=== PATIENT | male | born 1940 | race Caucasian/White ===

== ENCOUNTER → 2024-11-30 12:31 | Outpatient (REF) | payer MEDICARE, OTHER, SELFPAY | LOC: RAD 12:31 | PROVIDERS: ATTENDING PHYSICIAN Family Medicine | DX: M25.511 Pain in right shoulder (principal) | CPT/HCPCS: 73030 ==

== ENCOUNTER 2025-07-08 10:44 | Emergency (ER) | payer MEDICARE, OTHER, SELFPAY ==
[2025-07-08 10:55] VITALS: BP 142/54
[2025-07-08 11:18] LABS: Hematocrit 45.1 % (39.0-52.0); Hemoglobin 15.2 g/dL (13.0-18.0); Mean Corp Hgb Conc. 33.7 g/dL (33.0-37.0); Mean Corpuscular Volume 87.2 fL (80.0-94.0); Nucleated Red Blood Cells % 0 % (-); Platelet Count 197 10^3/uL (130-400); Red Cell Dist. Width 13.0 % (11.5-14.5)
[2025-07-08 11:27] LABS: ALT (SGPT) 22 U/L (0-50); AST (SGOT) 30 U/L (17-59); Albumin 4.1 g/dl (3.5-5.0); Alkaline Phosphatase 67 U/L (38-126); Blood Urea Nitrogen 20 mg/dl (9-20); Calcium 9.0 mg/dl (8.4-10.2); Carbon Dioxide 26 mmol/L (22-30); Chloride 104 mmol/L (98-107); Glucose 106 mg/dl (70-99); Potassium 4.1 mmol/L (3.5-5.1); Sodium 134 mmol/L (135-145); Total Protein 7.2 g/dl (6.3-8.2); eGFR 59.26
[2025-07-08 11:38] LABS: Troponin I 0.016 ng/ml
--- NOTE | 2025-07-08 11:51 | ED.GENMED ---
History of Present Illness
General
Chief Complaint: Chest Pain
Source: patient
Exam Limitations: none
Time Seen by Provider: 07/08/25 11:43
Nursing documentation reviewed up to this point in time: agreed with
History of Present Illness
History of Present Illness:
The patient is a pleasant 85-year-old man who reports 2 days of right sided chest pain and right arm pain. Patient does report that he lifted heavy logs of wood 2 to 3 days ago and may have strained his right arm, right shoulder and right chest
area. Patient denies shortness of breath, chest pain and cough. He denies fever. Patient reports that the pain does not hurt worse when he takes a deep breath. He denies a history of PE and DVT. He denies leg pain and leg swelling.
Past History
Past History
ED Past Medical History: GERD, HTN and Other (Polyps)
ED Past Surgical History: Cholecystectomy and Orthopedic
Social History
Tobacco: Former smoker
Alcohol: Occasional
Drug: None
Personal:
Living: with family
Employment: Retired
Family History
Family History: Hypertension; Negative CAD or Sudden
Review of Systems
Review of Systems
Allergies reviewed?: Yes
All Other Systems: ROS reviewed and negative except as documented in HPI and ROS
Constitutional: Reports no symptoms
EENT: Reports no symptoms
Respiratory: Reports no symptoms
Cardiac: Reports chest pain
ABD/GI: Reports no symptoms
: Reports no symptoms
Musculoskeletal: Reports muscle pain
Skin: Reports no symptoms
Neurological: Reports no symptoms
Endocrine: Reports no symptoms
Hematologic/Lymphatic: Reports no symptoms
Psychiatric: Reports no symptoms
Phy Exam
Physical Exam
Physical Exam:
Physical Exam
General: no apparent distress, not acutely ill. Well and comfortable appearing
Neck: supple. no meningeal signs. normal psoterior pharynx
Heart: s1/s2 regular rate and rhythm. Reproducible tenderness right lateral chest wall area. No sign of ecchymoses, redness or rash to chest wall
Lungs: no acute respiratory distress. clear bilaterally
Abdomen: normal bowel sounds. not tender. no CVAT
Neuro: alert and oriented. no focal neurological deficits
Skin: no rash
Psychiatric: well kept. interactive and cooperative
Extremities: no edema. no calf tenderness. negative homans. good distal pulses. Strong pulses of bilateral upper and lower extremity. Equal arm strength and handgrip bilaterally. No streaking redness, swelling or deformity
of right upper extremity.
Scores
Heart Score for Chest Pain Patients
STEMI patient?: Not applicable
Course
Orders/Labs/Results
Orders:
Orders
07/08/25 10:47
Electrocardiogram (*1) Urgent
Reason for Study: Chest Pain
Cardiac Monitoring- Treatment ONCE
EKG- Treatment ONCE
IV Insert/Care/Rem.- Treatment PRN
O2 Therapy [RESP] Urgent
Titrate/Wean O2 to maintain O2 sat greater than (%): 90
Special Instructions: Maintain sats >/=90%
Pulse Ox/spot Check [RESP] Urgent
Quantity: 1
Special Instructions: ON ROOM AIR
07/08/25 11:07
Complete Blood Count/With Diff Urgent
Comprehensive Metabolic Panel Urgent
Troponin I Urgent
07/08/25 12:09
D-Dimer Urgent
Troponin I Urgent
07/08/25 12:57
CR Chest - 2 Views Urgent
Comment:
Reason For Exam: R sided chest pain
Abnormal Lab Results
07/08/25 07/08/25
11:07 12:09
MPV 10.7 H fL
(7.4-10.4)
Monocytes % 9.5 H %
(1.7-9.3)
D-Dimer 0.85 H ug/mlFEU
(0.00-0.50)
Sodium 134 L mmol/L
(135-145)
Glucose 106 H mg/dl
(70-99)
07/08/25 11:07
07/08/25 11:07
Vital Signs
Initial and Last Documented VS:
Initial Vital Signs
Temp Pulse Resp BP Pulse Ox
97.8 F 59 18 142/54 98
07/08/25 10:55 07/08/25 10:55 07/08/25 10:55 07/08/25 10:55 07/08/25 10:55
Last Documented Vital Signs
Temp Pulse Resp BP Pulse Ox
97.8 F 47 18 134/107 98
07/08/25 10:55 07/08/25 13:00 07/08/25 12:45 07/08/25 12:03 07/08/25 13:00
MDM/Problems Addressed
Differential Diagnosis Includes:
Musculoskeletal chest wall pain, acute coronary syndrome, PE, pleural effusion
MDM/Problems Addressed:
Patient complains of right shoulder pain and right chest pain
Chronic conditions affecting care: HTN
Acute Exacerbation and/or Progression of Chronic Illness:
Patient is acutely hypertensive, however, blood pressure is only minimally elevated and there is no sign of CHF or neurological impairment
Acute Exacerbation and/or Progression of Chronic Illness: HTN
*Radiology
Radiology exam reviewed: preliminary read by ED provider (Chest x-ray read by me. No acute disease) and radiology read reviewed
*Pulse Oximetry
SaO2: 98
Oxygen Mode of Delivery: Room air
Patient hypoxic: no
*EKG
Interpreted by ED Provider?: Yes
Interpretation: abnormal
Comparison EKG: changes noted
Rate: normal
Rhythm: sinus and PAC's
[place]: left axis deviation
Interval: normal interval
QRS Pattern: left vent hypertrophy
Ischemia: no ischemia
*[employer] Interpretation
Rate: normal
Interpretation: normal
Rhythm: sinus
*Critical Care Note
Total Time (30-74mins, 75-104mins- exclusive of procedures): Not Applicable
Data Reviewed
Review of Other/Old Records Reveals: Radiology Studies (Chest x-ray reviewed from 2021 which appears normal)
Source: patient and spouse
Update Note
Update Note:
D-dimer is 0.85, however, this is in the normal range for age-adjusted. Additionally, patient's pain is very atypical for heart. Patient has 2 normal troponins, therefore, and is unlikely to be acute coronary syndrome
ED Attending Note
-
Portions of this chart may have been created with voice recognition software.� Occasional wrong word or��sound alike� substitutions may have occurred due to the inherent limitations of voice recognition software.
Discharge Plan
Departure
Patient Disposition: Home (Routine Discharge)
Date of Disposition: 07/08/25
Time of Disposition: 13:48
Patient with high blood pressure during this ER visit?: Yes
Condition: Good
Covid-19: Not Applicable
Discharge Problem:
Right-sided chest pain
Instructions: BLOOD PRESSURE, Musculoskeletal Pain
Prescriptions:
No Action
metoprolol tartrate 25 MG tablet
25 mg PO BID
omeprazole [Prilosec] 20 MG capsule,delayed release(DR/EC)
20 mg PO DAILY
Referrals:
NONE,* [Family Provider, Internal Medicine]
Activity Restrictions/Additional Instructions:
Take Tylenol 650 mg every 4-6 hours for pain
Interventions
Interventions:
*Risk Screen - Suicide Last Done: 07/08/25 12:09
*Neglect/Abuse Screening Last Done: 07/08/25 12:09
*ED- Fall Risk Assessment Last Done: 07/08/25 10:55
*ED COVID-19 Vaccine History Last Done: 07/08/25 10:55
*ED Influenza Vaccine History Last Done: 07/08/25 10:55
ED- Cardiac Assessment Last Done: 07/08/25 12:14
Discharge Date and Time
Print Language: LATVIAN
[2025-07-08 12:03] VITALS: BP 134/107
[2025-07-08 12:47] LABS: Troponin I < 0.012 ng/ml
[2025-07-08 12:48] LABS: D-Dimer 0.85 ug/mlFEU (0.00-0.50)
== END 2025-07-08 14:11 | disposition home or self-care (01) ==
LOC: EMR 10:44
PROVIDERS: EMERGENCY PHYSICIAN Emergency Medicine
DX: R07.89 Other chest pain (principal); M79.601 Pain in right arm; K21.9 Gastro-esophageal reflux disease without esophagitis; I10 Essential (primary) hypertension; Z82.49 Family history of ischemic heart disease and other diseases of the circulatory system; Z87.891 Personal history of nicotine dependence; Z90.49 Acquired absence of other specified parts of digestive tract
CPT/HCPCS: 99283; 71046; 80053; 84484; 85025; 85379; 93005